=== PATIENT | male | born 1995 | race African-American/Black ===

== ENCOUNTER 2024-02-02 12:36 | Emergency (ER) | payer OTHER ==
[~2024-02-02] VITALS: Ht 185.4 cm; Wt 145.2 kg
[2024-02-02 13:05] VITALS: O2SAT 98
[2024-02-02] MEDS: IBUPROFEN 400MG TABLET PO ONE (14:09)
[2024-02-02 14:10] VITALS: BP 149/88; PULSE 78; RESP 16; TEMP 98.4
== END 2024-02-02 14:11 | disposition home or self-care (01) ==
LOC: ER 12:36
DX: S60.222A Contusion of left hand, initial encounter (principal); S60.221A Contusion of right hand, initial encounter; Y04.0XXA Assault by unarmed brawl or fight, initial encounter; Y93.89 Activity, other specified; Y92.89 Other specified places as the place of occurrence of the external cause; Y99.8 Other external cause status
CPT/HCPCS: 73120; 73140; 99284